=== PATIENT | male | born 1990 | race Caucasian/White ===

== ENCOUNTER 2022-05-09 20:05 | Emergency (ER) | payer BC, OTHER ==
[~2022-05-09] VITALS: Ht 187 cm; Wt 140.0 kg
[2022-05-09 20:10] VITALS: BP 191/122
[2022-05-09] MEDS ORDERED: cefTRIAXone 1,000 MG VIAL IM STA (20:21)
[2022-05-09] MEDS ORDERED: KETOROLAC 60 MG/2 ML VIAL IM STA (20:21)
--- NOTE | 2022-05-09 20:28 | ED EENT ---
History of Present Illness General Chief Complaint: Dental Problems/Pain Stated Complaint: DENTAL PAIN Source: patient History of Present Illness Date Seen by Provider: May 09, 2022 Time Seen by Provider: 20:02 Initial Comments 32-year-old male presenting with complaints of dental pain on the right side. He has chronic dental issues but a few days ago he developed increasing pain. In the last 2 days he has had more severe pain to the point that he could not control it with [id number] medicine. He denies any fever or chills. He has pain on the right side going into his ear. He reports having a dental appointment Wednesday. Timing/Duration: gradual Location: dental Prearrival Treatment: over the counter meds Associated Symptoms: No change in hearing, No cough, No drooling, No ear drainage; facial pain/swelling (right sided); No fever, No malaise, No nasal congestion/drainage, No poor fluid intake, No poor solids intake, No sinus infection, No sore throat; tooth pain; No voice change Allergies and Home Medications Allergies Coded Allergies: No Known Drug Allergies (Unverified , 05/09/22) Patient Home Medication List Home Medication List Reviewed: Yes Amoxicillin/Potassium Clav (Amox Tr-K Clv 875-125 mg Tab) 875 Mg-125 Mg Tablet, 1 EACH PO BID Prescribed by: SHANDA IGLESIAS on 05/09/222031 Hydrocodone/Acetaminophen (Hydrocodone-Acetamin 5-325 mg) 5 Mg-325 Mg Tablet, 1 TAB PO Q4H PRN for PAIN-SEVERE (8-10) Prescribed by: SHANDA IGLESIAS on 05/09/222032 Ibuprofen (Ibuprofen) 800 Mg Tablet, 800 MG PO Q8H PRN for PAIN Prescribed by: SHANDA IGLESIAS on 05/09/222031 Review of Systems Review of Systems Constitutional: No chills, No fever Eyes: No Symptoms Reported Ears: See HPI Nose: no symptoms reported Mouth: see HPI Throat: no symptoms reported Respiratory: no symptoms reported Cardiovascular: no symptoms reported Gastrointestinal: no symptoms reported Musculoskeletal: no symptoms reported Skin: no symptoms reported Neurological: Headache Past Qtuoigh-Dumwdc-Xycrjz Hx Patient Social History Tobacco Use?: Yes Tobacco type used: Cigarettes Smoking Status: Heavy Tobacco Smoker Substance use?: No Past Medical History Surgery/Hospitalization HX: Dental Caries, Hypertension Physical Exam Vital Signs Vital Signs - First Documented 05/09/22 20:10 Temp 36.1 Pulse 64 Resp 24 B/P (MAP) 191/122 (145) Pulse Ox 98 O2 Delivery Room Air Height, Weight, BMI Height: '" Weight: lbs. oz. kg; BMI Method: General Appearance: WD/WN, mild distress Eyes: bilateral eye PERRL, bilateral eye EOMI Ears: bilateral ear auricle normal, bilateral ear canal normal, bilateral ear TM normal Mouth/Throat: pharynx normal, dental tenderness (Widespread dental decay several broken teeth and cavities. There is some gum swelling on the right mandible around the broken teeth that are bothering him.) Neck: full range of motion, supple Cardiovascular: normal peripheral pulses, regular rate, rhythm Respiratory: chest non-tender, lungs clear, normal breath sounds, no respiratory distress, no accessory muscle use Neurologic/Psychiatric: alert, oriented x 3 Skin: normal color, warm/dry Progress/Results/Core Measures Results/Orders My Orders Orders - SHANDA IGLESIAS MD Ceftriaxone (Rocephin) (05/09/22 20:21) Rx-Hydrocodone/Apap 5-325 Mg (Rx-Vicodin (05/09/22 20:30) Lidocaine 1% Inj 20 Ml (Xylocaine 1% Inj (05/09/22 20:30) Ketorolac Injection (Toradol Injection) (05/09/22 20:21) Medications Given in ED Current Medications Medications Dose Ordered Sig/Michelle Route Start Time Stop Time Status Last Admin Dose Admin Acetaminophen/ Hydrocodone Bitart 1 ea Q4H PRN PO 05/09/22 20:30 05/09/22 21:28 DC 05/09/22 20:38 1 EA Lidocaine HCl 2.1 ml ONCE ONCE INJ 05/09/22 20:30 05/09/22 20:31 DC 05/09/22 20:37 2.1 ML Vital Signs/I&O 05/09/22 05/09/22 20:10 20:45 Temp 36.1 Pulse 64 Resp 24 B/P (MAP) 191/122 (145) 177/112 Pulse Ox 98 O2 Delivery Room Air Progress Progress Note : Progress Note Treat with Rocephin 1 g IM here in addition to his Toradol 60 mg IM. Start on hydrocodone for severe pain. Continue with Augmentin and keep appointment with dentist. Departure Impression Primary Impression: Pain due to dental caries Additional Impressions: Dental abscess Elevated blood pressure reading Disposition: HOME, SELF-CARE Condition: Stable Departure-Patient Inst. Decision time for Depature: 20:30 Referrals: NO,LOCAL PHYSICIAN (PCP) Primary Care Physician [facility] Patient Instructions: Tooth Decay ED, Tooth Abscess ED, High Blood Pressure ED Add. Discharge Instructions: Take the full course of antibiotics to help treat for infection. You may continue with ibuprofen at a maximum dose of 800 mg or 4 [id number] pills every 8 hours. For severe pain you could use hydrocodone with acetaminophen 5/325 mg pills. 1 every 4 hours. Follow-up with the dentist on Wednesday as scheduled Establish care with a primary care provider about your blood pressure. It may be related to the infection but you may also need to be on medication for your blood pressure. [facility] clinic could be reached by calling [phone]. You could establish care with a primary provider through them or other clinic of your choice All discharge instructions reviewed with patient and/or family. Voiced understanding. Scripts Ibuprofen (Ibuprofen) 800 Mg Tablet 800 MG PO Q8H PRN for PAIN for 10 Days, #30 TAB 0 Refills Prov: SHANDA IGLESIAS MD 05/09/22 Hydrocodone/Acetaminophen (Hydrocodone-Acetamin 5-325 mg) 5 Mg-325 Mg Tablet 1 TAB PO Q4H PRN for PAIN-SEVERE (8-10) for 5 Days, #30 TAB 0 Refills Prov: SHANDA IGLESIAS MD 05/09/22 Amoxicillin/Potassium Clav (Amox Tr-K Clv 875-125 mg Tab) 875 Mg-125 Mg Tablet 1 EACH PO BID for dental abscess for 10 Days, #20 TAB 0 Refills Prov: SHANDA IGLESIAS MD 05/09/22 Images Mouth/Nose 1 - Caries (Widespread decay in the right lower teeth are broken with gum swelling and apparent abscess) SHANDA IGLESIAS MD May 09, 2022 20:28
[2022-05-09] MEDS ORDERED: LIDOCAINE 1% INJ 20 ML VIAL INJ ONE (20:30)
[2022-05-09] MEDS ORDERED: IBUP-1780 PO (20:32)
[2022-05-09] MEDS ORDERED: ACHD5005 PO (20:32)
[2022-05-09] MEDS ORDERED: AMOX1TAB12 PO (20:32)
== END 2022-05-09 20:49 | disposition home or self-care (01) ==
LOC: ER FS 20:05
DX: K04.7 Periapical abscess without sinus (principal); K02.9 Dental caries, unspecified; I10 Essential (primary) hypertension; F17.210 Nicotine dependence, cigarettes, uncomplicated; Z28.310 Unvaccinated for COVID-19
CPT/HCPCS: 99284

== ENCOUNTER 2022-06-18 09:20 | Emergency (ER) | payer BC ==
[~2022-06-18] VITALS: Ht 193 cm; Wt 140.0 kg
[~2022-06-18 09:20] MED LIST: ACHD5005 PO; AMOX1TAB12 PO; IBUP-1780 PO
[2022-06-18] MEDS ORDERED: HYDROcodone/APAP 7.5 MG/325 MG (LORTAB, LORCET PLUS) TABLET PO STA (10:05)
[2022-06-18] MEDS ORDERED: COLCHICINE 0.6 MG (COLCRYS) TABLET PO ONE ×2 (10:15→11:15)
--- NOTE | 2022-06-18 10:16 | ED Lower Extremity ---
General Chief Complaint: Lower Extremity Stated Complaint: RAJ FEET PAIN/SWELLING Nursing Triage Note: WEDNESDAY PATIENT BEGAN HAVING PROBLEMS WALKING, PATIENT STATES HE IS UNABLE TO BEAR WEIGHT ON BOTH FEET R/T INTENSE PAIN THAT STARTS UNDER HIS BILATERAL TOES MOVES AROUND THE OUTER SIDES AND TOP OF HIS FEET AND FINALLY TO HIS ANKLES. VERBALIZES HE HAS HAD THIS ISSUE IN THE PAST AND STATES "MAYBE I HAVE GOUT". VERBALIZES HE TOOK AN 800MG IBUPROFEN AROUND 0400 THIS AM. Source: patient Exam Limitations: no limitations History of Present Illness Date Seen by Provider: Jun 18, 2022 Time Seen by Provider: 09:55 Initial Comments Here with report of bilateral foot pain since Wednesday. States he drank quite a bit of beer on Wednesday but was also wearing a pair of boots that he does not normally wear to work outside. States the pain started on Wednesday and has been fairly significant since then. 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 Does have family history of gout and believes that he may have had gout as well. He did take some ibuprofen which is helped but has not resolved the pain. Still very tender when walking. Does note some swelling to the lateral aspect of both feet and pain along the base of the toes bilateral with left greater than right. No calf swelling or other problems. Denies fever or breathing problems. Onset: other (4 to 5 days) Severity: moderate Pain/Injury Location: bilateral foot, bilateral ankle Method of Injury: unknown Modifying Factors: Improves With Immobilization; Worse With Movement Allergies and Home Medications Allergies Coded Allergies: No Known Drug Allergies (Unverified , 05/09/22) Patient Home Medication List Home Medication List Reviewed: Yes Amoxicillin/Potassium Clav (Amox Tr-K Clv 875-125 mg Tab) 875 Mg-125 Mg Tablet, 1 EACH PO BID Prescribed by: SHANDA IGLESIAS on 05/09/222031 Hydrocodone Bit/Acetaminophen (HYDROcodone/APAP 5 MG/325 MG TAB) 1 Tab Tab, 1 TAB PO Q6H Prescribed by: NESSA BACK on 06/18/22 111 Hydrocodone/Acetaminophen (Hydrocodone-Acetamin 5-325 mg) 5 Mg-325 Mg Tablet, 1 TAB PO Q4H PRN for PAIN-SEVERE (8-10) Prescribed by: SHANDA IGLESIAS on 05/09/222032 Ibuprofen (Ibuprofen) 800 Mg Tablet, 800 MG PO Q8H PRN for PAIN Prescribed by: SHANDA IGLESIAS on 05/09/222031 Review of Systems Constitutional: see HPI; No chills, No fever Respiratory: No cough, No short of breath Cardiovascular: No chest pain, No edema Musculoskeletal: joint pain, joint swelling Skin: No change in color, No lesions Psychiatric/Neurological: Denies Numbness, Denies Tingling Past Ixrvreu-Pakjcy-Dmbokv Hx Patient Social History Tobacco Use?: Yes Tobacco type used: Cigarettes Smoking Status: Current Everyday Smoker Use of E-Cig and/or Vaping dev: No Substance use?: No Alcohol Use?: Yes Alcohol type: Beer Alcohol Frequency: Several times a month Pt feels they are or have been: No Immunizations Up To Date First/Initial COVID19 Vaccinat: declined Past Medical History Surgery/Hospitalization HX: Dental Caries, Hypertension, STATES MAY HAVE HAD GOUT IN PAST. Surgeries: No Family Medical History Reviewed Nursing Family Hx Diabetes, Hypertension Physical Exam Vital Signs Vital Signs - First Documented 06/18/22 09:30 Temp 36.6 Pulse 88 Resp 18 B/P (MAP) 135/84 (101) Pulse Ox 100 O2 Delivery Room Air Capillary Refill : Height, Weight, BMI Height: '" Weight: lbs. oz. kg; 37.00 BMI Method: General Appearance: WD/WN, no apparent distress Cardiovascular: regular rate, rhythm, no murmur Respiratory: lungs clear, normal breath sounds Ankles: bilateral ankle other (Bilateral tenderness with left greater than right. No obvious deformity or significant swelling.) Feet: bilateral foot other (Bilateral tenderness to the lateral aspect and distal foot at base of toes with left greater than right. Mild swelling to the lateral aspect of the foot bilateral.) Neurologic/Psychiatric: alert, oriented x 3 Skin: normal color, warm/dry Progress/Results/Core Measures Results/Orders Lab Results Laboratory Tests Test 06/18/22 10:14 Range/Units White Blood Count 9.4 4.3-11.0 10^3/uL Red Blood Count 4.39 4.30-5.52 10^6/uL Hemoglobin 13.4 13.3-17.7 g/dL Hematocrit 41 40-54 % Mean Corpuscular Volume 93 80-99 fL Mean Corpuscular Hemoglobin 31 25-34 pg Mean Corpuscular Hemoglobin Concent 33 32-36 g/dL Red Cell Distribution Width 13.1 10.0-14.5 % Platelet Count 249 130-400 10^3/uL Mean Platelet Volume 10.1 9.0-12.2 fL Immature Granulocyte % (Auto) 0 % Neutrophils (%) (Auto) 71 42-75 % Lymphocytes (%) (Auto) 14 12-44 % Monocytes (%) (Auto) 12 0-12 % Eosinophils (%) (Auto) 2 0-10 % Basophils (%) (Auto) 0 0-10 % Neutrophils # (Auto) 6.7 1.8-7.8 10^3/uL Lymphocytes # (Auto) 1.4 1.0-4.0 10^3/uL Monocytes # (Auto) 1.1 H 0.0-1.0 10^3/uL Eosinophils # (Auto) 0.2 0.0-0.3 10^3/uL Basophils # (Auto) 0.0 0.0-0.1 10^3/uL Immature Granulocyte # (Auto) 0.0 0.0-0.1 10^3/uL Sodium Level 141 135-145 MMOL/L Potassium Level 3.8 3.6-5.0 MMOL/L Chloride Level 105 98-107 MMOL/L Carbon Dioxide Level 26 21-32 MMOL/L Anion Gap 10 5-14 MMOL/L Blood Urea Nitrogen 8 7-18 MG/DL Creatinine 0.79 0.60-1.30 MG/DL Estimat Glomerular Filtration Rate 120 BUN/Creatinine Ratio 10 Glucose Level 86 70-105 MG/DL Calcium Level 9.2 8.5-10.1 MG/DL Corrected Calcium 9.4 8.5-10.1 MG/DL Total Bilirubin 1.6 H 0.1-1.0 MG/DL Aspartate Amino Transf (AST/SGOT) 12 5-34 U/L Alanine Aminotransferase (ALT/SGPT) 40 0-55 U/L Alkaline Phosphatase 52 40-136 U/L C-Reactive Protein High Sensitivity 9.80 H 0.00-0.50 MG/DL Total Protein 7.2 6.4-8.2 GM/DL Albumin 3.8 3.2-4.5 GM/DL My Orders Orders - NESSA BACK MD Cbc With Automated Diff (06/18/22 10:05) Comprehensive Metabolic Panel (06/18/22 10:05) Hs C Reactive Protein (06/18/22 10:05) Hydrocodone/Apap 7.5/325 Tab (Lortab 7. (06/18/22 10:05) Colchicine Tablet (Colcrys Tablet) (06/18/22 10:15) Colchicine Tablet (Colcrys Tablet) (06/18/22 11:15) Medications Given in ED Current Medications Medications Dose Ordered Sig/Michelle Route Start Time Stop Time Status Last Admin Dose Admin Colchicine 1.2 mg ONCE ONCE PO 06/18/22 10:15 06/18/22 10:16 DC 06/18/22 10:25 1.2 MG Vital Signs/I&O 06/18/22 09:30 Temp 36.6 Pulse 88 Resp 18 B/P (MAP) 135/84 (101) Pulse Ox 100 O2 Delivery Room Air Blood Pressure Mean: 101 Progress Progress Note : Progress Note Seen and evaluated. No indication for x-ray currently. We will get basic labs given remote concern of kidney dysfunction and possible need for NSAID therapy due to concerns for gout. Colchicine 1.2 mg p.o. now and hydrocodone 7.5/325 1 tab p.o. now. We will repeat colchicine in an hour and follow-up on lab results. This was discussed with the patient who agrees. Monitor patient. 1113: Labs reviewed. CRP elevated but white count normal. I believe this is gout. Kidney function normal. We will continue with second dose of colchicine now and continue outpatient therapy with ibuprofen and a few hydrocodone for right hip pain. Discharged home with return precautions. Patient verbalized understanding instructions and agreement with plan. Departure Impression Primary Impression: Gout of both feet Disposition: HOME, SELF-CARE Condition: Stable Departure-Patient Inst. Decision time for Depature: 11:14 Referrals: NO,LOCAL PHYSICIAN (PCP/Family) Primary Care Physician Patient Instructions: Gout (DC), Low Purine Diet Add. Discharge Instructions: All discharge instructions reviewed with patient and/or family. Voiced understanding. You may take ibuprofen 800 mg every 8 hours as needed for pain over the next few days. Make sure you are drinking any of fluids with this to prevent kidney irritation. Also this will help with decreasing potential for stomach upset. If you are getting stomach upset, you can take ibuprofen with food. Take other medications as prescribed. You should avoid foods that trigger gout such as beer, fatty red meat or cheese. Review information provided to help you with determining appropriate diet. Follow-up with your doctor in a few days for recheck. Return for worse pain, fever, vomiting, swelling, weakness, breathing problems or other concerns as needed. Scripts Hydrocodone Bit/Acetaminophen (HYDROcodone/APAP 5 MG/325 MG TAB) 1 Tab Tab 1 TAB PO Q6H for Pain, #6 TAB 0 Refills Prov: NESSA BACK MD 06/18/22 NESSA BACK MD Jun 18, 2022 10:16
[2022-06-18 10:22] LABS: BASOPHILS % (AUTO) 0 % (0-10); EOSINOPHILS # (AUTO) 0.2 10^3/uL (0.0-0.3); EOSINOPHILS % (AUTO) 2 % (0-10); HEMATOCRIT 41 % (40-54); HEMOGLOBIN 13.4 g/dL (13.3-17.7); LYMPHOCYTES # (AUTO) 1.4 10^3/uL (1.0-4.0); LYMPHOCYTES % (AUTO) 14 % (12-44); MEAN CORPUSCULAR HEMOGLOBIN 31 pg (25-34); MEAN CORPUSCULAR HGB CONC 33 g/dL (32-36); MEAN CORPUSCULAR VOLUME 93 fL (80-99); MEAN PLATELET VOLUME 10.1 fL (9.0-12.2); MONOCYTES # (AUTO) 1.1 10^3/uL (0.0-1.0); MONOCYTES % (AUTO) 12 % (0-12); NEUTROPHILS # (AUTO) 6.7 10^3/uL (1.8-7.8); NEUTROPHILS % (AUTO) 71 % (42-75); PLATELET COUNT 249 10^3/uL (130-400); WHITE BLOOD COUNT 9.4 10^3/uL (4.3-11.0)
[2022-06-18 10:30] LABS: ALBUMIN 3.8 GM/DL (3.2-4.5); POTASSIUM 3.8 MMOL/L (3.6-5.0)
[2022-06-18 10:31] LABS: CALCIUM 9.2 MG/DL (8.5-10.1)
[2022-06-18 10:33] LABS: TOTAL PROTEIN 7.2 GM/DL (6.4-8.2)
[2022-06-18 10:34] LABS: BILIRUBIN,TOTAL 1.6 MG/DL (0.1-1.0)
[2022-06-18 10:36] LABS: CREATININE SERUM 0.79 MG/DL (0.60-1.30)
[2022-06-18] MEDS ORDERED: ACHD5005 PO (11:18)
[2022-06-18 11:35] VITALS: BP 136/92
== END 2022-06-18 11:35 | disposition home or self-care (01) ==
LOC: EDUNIT# 09:20 → ER 09:23
DX: M10.9 Gout, unspecified (principal); R79.82 Elevated C-reactive protein (CRP); F17.210 Nicotine dependence, cigarettes, uncomplicated; Z28.310 Unvaccinated for COVID-19
CPT/HCPCS: 36415; 80053; 85025; 86141; 99283